=== PATIENT | male | born 1970 | race Caucasian/White ===

== ENCOUNTER 2023-03-06 14:41 | Inpatient (IN) | payer OTHER ==
[~2023-03-06] VITALS: Ht 162.6 cm; Wt 65.8 kg
[2023-03-06] MEDS ORDERED: ONDANSETRON 4 MG/2 ML VIAL ONE (15:15)
[2023-03-06] MEDS ORDERED: ONDANSETRON 4 MG/2 ML VIAL IV ONE (15:15)
--- NOTE | 2023-03-06 15:18 | NUR ---
PT IS IN ROOM #5B. DR HOPKINS EVALUATED THE PT.
[2023-03-06 15:19] LABS: HEMATOCRIT 29.2 % (36.7-47.1); MEAN CORPUSCULAR HEMOGLOBIN 25.9 uug (23.8-33.4); MEAN CORPUSCULAR VOLUME 79.9 fL (73.0-96.2); PLATELET COUNT (AUTO) 446 K/uL (152-348)
[2023-03-06] MEDS ORDERED: NITROGLYCERIN OINT 1 GM PACKET TP ONE ×2 (15:45→15:57)
[2023-03-06] MEDS ORDERED: PANTOPRAZOLE SODIUM IV 40 MG in IV DEXTROSE 5% 100 ML IV ONE (15:45)
[2023-03-06 15:50] LABS: CARBON DIOXIDE 25 mmol/L (21-32); CHLORIDE 99 mmol/L (98-107); CREATININE 0.8 mg/dL (0.6-1.3); GLUCOSE 96 mg/dL (74-106); POTASSIUM 3.1 mmol/L (3.5-5.1); UREA NITROGEN, BLOOD 12 mg/dL (7-18)
[2023-03-06 15:59] LABS: ALANINE AMINOTRANSFERASE 19 U/L (16-63); ALKALINE PHOSPHATASE 97 U/L (50-136); ASPARTATE AMINOTRANSFERASE 21 U/L (15-37); BILIRUBIN,DIRECT 0.1 mg/dL (0.0-0.2); BILIRUBIN,TOTAL 0.3 mg/dL (0.2-1.0); TOTAL PROTEIN, SERUM 8.7 g/dL (6.4-8.2)
[2023-03-06] MEDS ORDERED: PANTOPRAZOLE SODIUM 40 MG VIAL ONE (16:01)
[2023-03-06] MEDS: POTASSIUM CHLORIDE 50 ML IV SCH ×2 (16:45→17:45)
[2023-03-06] MEDS ORDERED: POTASSIUM CHLORIDE 50 ML ONE ×2 (16:51→17:57)
[2023-03-06] MEDS ORDERED: METOPROLOL SUCCINATE XL 25 MG TAB.SR.24H PO ONE ×2 (18:15→18:35)
[2023-03-06] MEDS ORDERED: ASPIRIN 81 MG TAB.CHEW PO ONE (18:15)
[2023-03-06] MEDS ORDERED: IV NORMAL SALINE 1000 ML BAG IV ONE (18:15)
[2023-03-06] MEDS ORDERED: ASPIRIN EC 81 MG TABLET.DR PO ONE (18:35)
--- NOTE | 2023-03-06 19:00 | NUR ---
Received report from GUY Wallis.
--- NOTE | 2023-03-06 20:10 | NUR ---
Report given to GUY Madrid.
[2023-03-06 20:50] VITALS: BP 130/75
--- NOTE | 2023-03-06 20:50 | NUR ---
Pt. admitted to TELE rm 316, under care of Dr. Vyas Belongs List completed GUY Madrid aware of patients arrival to unit.
--- NOTE | 2023-03-06 20:50 | NUR ---
RECEIVED PATIENT FROM ER : DX:CHEST PAIN HX: ETOH DEPENDENT MAMIE TOVAR GAVE REPORT USING SBAR. PATIENT AAOX4/MAEX4 . NO RESPIRATORY DISTRESS NOTED BREATHING EVEN AND UNLABORED V/S 98.9 F,RR18 HR92 SATURATION 96% ON ROOM AIR . ORIENTED PATIENT WITH ROOM ,EQUIPMENT ,CALL LIGHT AND ADVISED TO CALL FOR HELP .
--- NOTE | 2023-03-06 21:10 | NUR ---
PATIENT ASKED FOR SNACK/FOOD CHIEF TECHNOLOGY OFFICER PROVIDED APPLEJUICE ,SANDWICH AND JELLO .
[2023-03-06] MEDS ORDERED: THIAMINE HCL 200 MG/2 ML VIAL IV ONE (21:15)
[2023-03-06] MEDS ORDERED: REMEDY ESSENTIAL ZINC PASTE 113 GM TP PRN (21:15)
--- NOTE | 2023-03-06 21:36 | NUR ---
WOOD CHOPPER AT B/S FOR LAB DRAW .
[2023-03-06] MEDS: IV LACTATED RINGERS SOLUTION 1,000 ML IV PRN (21:41)
[2023-03-06] MEDS: LORAZEPAM 2 MG/1 ML VIAL IV PRN (21:47)
--- NOTE | 2023-03-06 21:47 | NUR ---
given prn Ativan patient anxious and getting agitated . see prn emar documentation .
--- NOTE | 2023-03-06 22:00 | NUR ---
inserted another iv to his right hand no .20 done aseptically attempted x1. left ac no.18 ok but patient keep bending the arm so the ivf pump keeps on beeping .
[2023-03-06] MEDS: ONDANSETRON 4 MG/2 ML VIAL IV PRN (22:06)
--- NOTE | 2023-03-06 22:07 | NUR ---
given Zofran c/o emesis x1 moderate about of liquid greenish vomitus .hob up and aspiration precaution observed.
[2023-03-06 22:09] LABS: THYROID STIMULATING HORMONE 2.396 mIU/mL (0.358-3.740)
[2023-03-06] MEDS ORDERED: THIAMINE HCL 200 MG/2 ML VIAL ONE (22:16)
--- NOTE | 2023-03-06 23:15 | NUR ---
patient in bed calm ,sleeping no s/s of pain .
[2023-03-07] VITALS: BP 118/78
[2023-03-07] MEDS: LORAZEPAM 2 MG/1 ML VIAL IV PRN ×3 (00:16→20:43)
--- NOTE | 2023-03-07 01:34 | NUR ---
PRN ATIVAN GIVEN SEE emar AND CIWA ASSESSMENT DONE .
[2023-03-07 04:00] VITALS: BP 115/76
[2023-03-07] MEDS: IV LACTATED RINGERS SOLUTION 1,000 ML IV PRN (06:20)
[2023-03-07 06:52] LABS: HEMATOCRIT 25.1 % (36.7-47.1); MEAN CORPUSCULAR HEMOGLOBIN 25.6 uug (23.8-33.4); MEAN CORPUSCULAR VOLUME 80.6 fL (73.0-96.2); PLATELET COUNT (AUTO) 331 K/uL (152-348)
[2023-03-07] MEDS ORDERED: PANTOPRAZOLE SODIUM 40 MG TABLET.DR PO SCH (07:00)
[2023-03-07 07:20] LABS: CREATININE 0.8 mg/dL (0.6-1.3); MAGNESIUM 1.7 mg/dL (1.8-2.4); PHOSPHOROUS 3.5 mg/dL (2.5-4.9); POTASSIUM 3.7 mmol/L (3.5-5.1)
[2023-03-07 07:29] LABS: *BLOOD, URINE NEGATIVE (NEGATIVE); *CLARITY,URINE CLEAR (CLEAR); *COLOR,URINE YELLOW (YELLOW); *KETONES,URINE 3+ (NEGATIVE); LEUKOCYTE ESTERASE ,URINE NEGATIVE (NEGATIVE); NITRITE, URINE NEGATIVE (NEGATIVE); UGLUCOSE NEGATIVE (NEGATIVE)
[2023-03-07 08:01] LABS: *BILIRUBIN,URIN 1+ (NEGATIVE)
--- NOTE | 2023-03-07 08:03 | NUR ---
critical lab value reported. urine ketone +3, urine +2. made aware.
[2023-03-07] MEDS ORDERED: ASPIRIN EC 81 MG TABLET.DR PO SCH (09:00)
[2023-03-07] MEDS ORDERED: THIAMINE HCL 100 MG TABLET PO SCH (09:00)
[2023-03-07] MEDS ORDERED: MAGNESIUM OXIDE 400 MG TABLET PO ONE (10:00)
[2023-03-07] MEDS: ONDANSETRON 4 MG/2 ML VIAL IV PRN (10:10)
[2023-03-07] MEDS ORDERED: MAGNESIUM SULFATE 1 GM/D5W 100 ML IVPB IV ONE (10:30)
[2023-03-07] MEDS: MAGNESIUM SULFATE/D5W 100 ML IV SCH ×2 (10:34→12:04)
[2023-03-07] MEDS: CHLORDIAZEPOXIDE HCL 25 MG CAPSULE PO SCH ×3 (11:30→17:08)
[2023-03-07 12:00] VITALS: BP 135/81
[2023-03-07 12:55] LABS: BACTERIA,URINE NONE SEEN /HPF (NONE SEEN); CALCIUM CARBONATE CRYSTALS,UR NONE SEEN /HPF (NONE SEEN); CALCIUM OXALATE CRYSTALS,UR NONE SEEN /HPF (NONE SEEN); CALCIUM PHOSPHATE CRYSTALS,UR NONE SEEN /HPF (NONE SEEN); CYSTINE CRYSTALS,URINE NONE SEEN /HPF (NONE SEEN); RBC,URINE 0-3 /HPF (0-3); SQUAMOUS EPITHELIAL CELL,UR FEW /HPF (NONE SEEN); TRICHOMONAS,URINE NONE SEEN /HPF (NONE SEEN); TRIPLE PHOSPHATE CRYSTAL,UR NONE SEEN /HPF (NONE SEEN); TYROSINE CRYSTAL,URINE NONE SEEN /HPF (NONE SEEN); URIC ACID CRYSTALS,URINE NONE SEEN /HPF (NONE SEEN); URINE AMORPHOUS PHOSPHATES NONE SEEN /HPF; URINE AMORPHOUS URATE NONE SEEN /HPF; YEAST,URINE NONE SEEN /HPF (NONE SEEN)
[2023-03-07 12:56] LABS: COARSE GRANULAR CASTS,URINE NONE SEEN /LPF; FATTY CASTS,URINE NONE SEEN /LPF (NONE SEEN); MUCUS,URINE FEW /LPF (0-FEW); RED BLOOD CELL CASTS,URINE NONE SEEN /LPF (NONE SEEN); SPERM,URINE NONE SEEN /HPF (NONE SEEN); WAXY CASTS,URINE NONE SEEN /LPF (NONE SEEN)
--- NOTE | 2023-03-07 13:00 | NUR ---
pt was started with Librium for alcohol withdrawal. pt alert and oriented. denies any pain. moderate tremor noted. deny hearing and seeing thing. nausea and vomiting subsided. pt ambulatory and brp.
[2023-03-07] MEDS: THIAMINE HCL INJ 100 MG in IV DEXTROSE 5% 50 ML IV SCH (13:13)
--- NOTE | 2023-03-07 15:54 | NUR ---
pt calm and relax. no episode of nausea and vomiting noted at this time. persistent hiccup noted.
[2023-03-07 16:00] VITALS: BP 139/80
[2023-03-07 16:19] LABS: HEMATOCRIT 27.3 % (36.7-47.1); MEAN CORPUSCULAR HEMOGLOBIN 25.8 uug (23.8-33.4); MEAN CORPUSCULAR VOLUME 80.3 fL (73.0-96.2); PLATELET COUNT (AUTO) 317 K/uL (152-348)
--- NOTE | 2023-03-07 18:03 | NUR ---
pt alert and oriented. denies any pain. episode of nausea and vomiting x3 in am noted PRN zofran was given. and PRN ativan was given for anxiety. pt ambulatory. vitals wnl. pt is tremulous. SIWA score of 9. pt states that "he's feeling much better" in the afternoon. no episode of nausea and vomiting in the afternoon. Librium 25mg TID was given for alcohol withdrawal. rhand 22g iv access patent and intact. hob elevated. aspiration precaution observed. bed locked all needs attended.
--- NOTE | 2023-03-07 19:53 | NUR ---
Received patient lying in bed. AAOx3. American speaking only. In no acute distress. Denies any pain or SOB. IV site on right FA intact and patent. IVF infusing. NSR on tele with HR of 90/min. Denies any N/V at this time. Safety measure initiated and call light within reached.
[2023-03-07 20:00] VITALS: BP 137/84
[2023-03-07] MEDS: PANTOPRAZOLE SODIUM 40 MG VIAL IV SCH (20:43)
[2023-03-07 22:05] LABS: *OCCULT BLOOD STOOL NEGATIVE (NEGATIVE)
[2023-03-08] VITALS: BP 133/90
[2023-03-08 04:00] VITALS: BP 130/89
[2023-03-08] MEDS: LORAZEPAM 2 MG/1 ML VIAL IV PRN (05:33)
--- NOTE | 2023-03-08 05:47 | NUR ---
No complain of N/V through out the shift. CIWA score 7. IVF infusing to PIV on right FA. NSR on tele with HR of 71/min. Needs attended to and met. Safety measure maintained and call light within reached.
[2023-03-08 07:05] LABS: CREATININE 0.7 mg/dL (0.6-1.3); MAGNESIUM 1.9 mg/dL (1.8-2.4); POTASSIUM 3.3 mmol/L (3.5-5.1)
--- NOTE | 2023-03-08 07:30 | NUR ---
MORNING REPORT: 1) MENTAL STATE: AO x 4 -patient able to verbally able to express needs. 2) BREATHING: Patient on RA - no sign of distress observed, o2 sats within normal limits. 3) CIRCULATION: No signs of cynosis, has strong pedal pulse present in both feet. 4) EATING & DRINKING: Self - feeder, eating and drinking well. Experiencing hip-cups and no new orders observed. 5) ELIMINATION: (i) Alternating between urinal and bathroom - passing good amounts of urine. (ii) large bowel movement during the day - well foamed 6) SKIN: Intact - self turning. 7) VITALS: Within normal limits 8) LABS: Pot low 3.3 and replacement administered as prescribed 40MeQ. 8) PLAN: (i) Maintain safety (ii) provide all care
[2023-03-08] MEDS ORDERED: POTASSIUM CHLORIDE 20 MEQ TAB.PRT.SR PO ONE (07:45)
[2023-03-08] MEDS: CHLORDIAZEPOXIDE HCL 25 MG CAPSULE PO SCH ×3 (09:34→17:16)
[2023-03-08] MEDS: PANTOPRAZOLE SODIUM 40 MG VIAL IV SCH ×2 (09:34→20:11)
[2023-03-08] MEDS: IV LACTATED RINGERS SOLUTION 1,000 ML IV PRN ×2 (09:53→20:11)
--- NOTE | 2023-03-08 10:25 | NUR ---
Social work consult was requested for a patient for homeless and substance abuse resources. Patient is 53-year-old male. Patient is Malagasy speaking and SW had, Deirdre, markus. Patient is alert and oriented X4. Patient presents with anxious mood and congruent affect. Patient states he does not have a primary contact. Patient states he is homeless and SW provided the patient resources and gave him the information for [facility] [address] [place] [address] ([phone]) and [facility] [address] [facility] [address] ([phone]). SW gave resources for [facility] [address] [facility] [address]. Resources were placed in the chart. Homeless waiver was signed and a copy was placed in the chart. Patient states that he is unemployed. Patient states that he has a history of alcohol abuse and his alcohol level was 302. CARLOS provided the patient resources and referrals for substance use from [facility] [address] [facility] [address] ([phone]), [facility] [address] [facility] [address] ([phone]), and [facility] [address] [facility] [address] ([phone]). Patient appeared appreciative of resources. Resources were placed in the chart. Patient denies a history of psychiatric diagnosis. Patient denies suicidal or homicidal ideation. Patient states he will follow-up with making his own arrangements for a living arrangement using the resources provided and requests a TAP card at discharge.
[2023-03-08 11:35] LABS: HEMATOCRIT 26.7 % (36.7-47.1); MEAN CORPUSCULAR HEMOGLOBIN 25.7 uug (23.8-33.4); MEAN CORPUSCULAR VOLUME 80.9 fL (73.0-96.2); PLATELET COUNT (AUTO) 292 K/uL (152-348)
[2023-03-08 11:42] VITALS: BP 121/47
[2023-03-08] MEDS: THIAMINE HCL INJ 100 MG in IV DEXTROSE 5% 50 ML IV SCH (12:25)
--- NOTE | 2023-03-08 12:30 | NUR ---
1) C/o of slight nausea - however noticed patient spitting phrame - no vomiting. 2) Refused anti-metic
[2023-03-08 16:00] VITALS: BP 127/83
--- NOTE | 2023-03-08 17:25 | NUR ---
LUNCH TIME 1) Self feeder 2) Ate 75% of lunch c/o of slight nausea
[2023-03-08] MEDS: ONDANSETRON 4 MG/2 ML VIAL IV PRN (17:59)
--- NOTE | 2023-03-08 18:15 | NUR ---
1) Patient vomited - large amount of digested food. 2) Zofran iv administered as prescribed.
--- NOTE | 2023-03-08 18:51 | NUR ---
HANDOVER TO NIGHT NURSES: 1) No change in condition 2) Will endorse care to night staff who will continue to assess, plan, implement and treat accordingly
--- NOTE | 2023-03-08 19:30 | NUR ---
Received patient lying in bed. AAOx2-3. No complain of N/V at this time. IVF infusing to PIV on right FA. Needs assessed and attended to. Safety measure initiated and call light within reached.
[2023-03-08 20:05] VITALS: BP 139/78
[2023-03-09 06:00] VITALS: BP 144/89
[2023-03-09] MEDS: ACETAMINOPHEN 325 MG TABLET PO PRN (06:14)
--- NOTE | 2023-03-09 06:24 | NUR ---
Low grade fever this AM. Tylenol 650mg PO given. Slept most of the night. No complain of pain or SOB. Calm and cooperative. No N/V complained. Safety measure maintained and call light within reached.
[2023-03-09] MEDS: IV LACTATED RINGERS SOLUTION 1,000 ML IV PRN ×2 (06:57→19:59)
--- NOTE | 2023-03-09 07:30 | NUR ---
received in bed awake no c/o nausea vomiting noted call light with in cely marley report is 2
[2023-03-09 07:44] LABS: HEMATOCRIT 26.7 % (36.7-47.1); MEAN CORPUSCULAR HEMOGLOBIN 25.9 uug (23.8-33.4); MEAN CORPUSCULAR VOLUME 81.5 fL (73.0-96.2); PLATELET COUNT (AUTO) 283 K/uL (152-348)
[2023-03-09 08:11] LABS: BILIRUBIN,TOTAL 0.2 mg/dL (0.2-1.0); CREATININE 0.7 mg/dL (0.6-1.3); POTASSIUM 3.6 mmol/L (3.5-5.1); TOTAL PROTEIN, SERUM 7.2 g/dL (6.4-8.2)
[2023-03-09] MEDS: CHLORDIAZEPOXIDE HCL 25 MG CAPSULE PO SCH ×3 (08:43→16:56)
[2023-03-09] MEDS: PANTOPRAZOLE SODIUM 40 MG VIAL IV SCH ×2 (08:43→20:35)
[2023-03-09] MEDS: THIAMINE HCL INJ 100 MG in IV DEXTROSE 5% 50 ML IV SCH (11:13)
[2023-03-09 11:31] VITALS: BP 137/88
[2023-03-09] MEDS: METOCLOPRAMIDE HCL 10 MG/2 ML VIAL IV SCH ×2 (14:24→21:09)
[2023-03-09] MEDS: ONDANSETRON 4 MG/2 ML VIAL IV PRN (14:56)
--- NOTE | 2023-03-09 14:56 | NUR ---
Patient vomited - large amount of digested food. Zofran iv administered by rn as prescribed.
[2023-03-09 16:13] VITALS: BP 134/89
[2023-03-09 20:00] VITALS: BP 127/81
--- NOTE | 2023-03-09 23:17 | NUR ---
pt calm and relax. no episode of nausea and vomiting noted at this time. persistent hiccup noted.
[2023-03-09] MEDS: LORAZEPAM 2 MG/1 ML VIAL IV PRN (23:28)
[2023-03-10 04:00] VITALS: BP 96/74
[2023-03-10] MEDS: METOCLOPRAMIDE HCL 10 MG/2 ML VIAL IV SCH ×3 (05:06→21:19)
--- NOTE | 2023-03-10 05:11 | NUR ---
Patient resting in bed comfortably. no s/s of sob or pain noted.
[2023-03-10] MEDS: IV LACTATED RINGERS SOLUTION 1,000 ML IV PRN (06:19)
--- NOTE | 2023-03-10 07:30 | NUR ---
MORNING REPORT: 1) MENTAL STATE: AO x 4 -patient able to verbally able to express needs. 2) BREATHING: Patient on RA - no sign of distress observed, o2 sats within normal limits. 3) CIRCULATION: No signs of cynosis, has strong pedal pulse present in both feet. 4) EATING & DRINKING: Self - feeder, eating and drinking well. Experiencing hip-cups and no new orders observed. 5) ELIMINATION: (i) Alternating between urinal and bathroom - passing good amounts of urine. (ii) large bowel movement during the day - well foamed 6) SKIN: Intact - self turning. 7) VITALS: Within normal limits 8) LABS: (i) Hgb low 8.5 (ii) Hct 26.7 (iii) Albimin 3.0 (iv) Creatinine 7.1 (v) BUN 5 8) PLAN: (i) Maintain safety - monitor vomiting & signs of aspiration (ii) provide all care
--- NOTE | 2023-03-10 08:35 | NUR ---
NAUSEA & AGITATION: 1) Continues to have hiccups and agitated 2) Zofran & Ativan administered as prescribed. 3) Await effect
[2023-03-10] MEDS: PANTOPRAZOLE SODIUM 40 MG VIAL IV SCH ×2 (08:50→20:05)
[2023-03-10] MEDS: CHLORDIAZEPOXIDE HCL 25 MG CAPSULE PO SCH ×3 (08:50→17:40)
[2023-03-10] MEDS: ONDANSETRON 4 MG/2 ML VIAL IV PRN (08:56)
[2023-03-10] MEDS: LORAZEPAM 2 MG/1 ML VIAL IV PRN (08:56)
--- NOTE | 2023-03-10 09:15 | NUR ---
VP COMPLIANCE ROUND: 1) Stop iv fluid - patient eating and drinking well. 2) VP COMPLIANCE aware of line out. 3) Can order MD if needed later as patient is a hard stick. 4) Patient to mobilize more - no urinal , so as to encourage patient to get out of bed more often.
[2023-03-10] MEDS: THIAMINE HCL 100 MG TABLET PO SCH (10:13)
[2023-03-10] MEDS: BACLOFEN 10 MG TABLET PO SCH ×2 (10:13→20:04)
--- NOTE | 2023-03-10 10:14 | NUR ---
HYDRAULIC BULL RIVETER OPERATOR ROUND: 1) Commenced on Baclofen PO 2) PO Vit B1 administered as prescribed.
--- NOTE | 2023-03-10 11:05 | NUR ---
ROUNDIN) Checked on patient - awake and returning from bathroom. 2) No change - still has hiccups. 3) Encouraged to drink lots.
[2023-03-10 11:59] VITALS: BP 116/73
[2023-03-10] MEDS ORDERED: LACTULOSE 20 G/30 ML LIQUID UDC PO ONE (12:00)
[2023-03-10] MEDS: LIDOCAINE 5% PATCH TD SCH (13:51)
--- NOTE | 2023-03-10 13:56 | NUR ---
PM MEDICATION: 1) Administered as prescribed: (i) Lactulose (ii) Reglan - Metoclopramide iv 2) Iv site - remains patent and no change.
--- NOTE | 2023-03-10 13:59 | NUR ---
PM MEDICATION: 1) Lidocaine patch applied to L side of chest 2) Complaining of pain from the hiccups.
--- NOTE | 2023-03-10 15:53 | NUR ---
ROUNDING: Patient asleep peacefully, no non-verbal signs of pain or distress.
[2023-03-10 16:17] VITALS: BP 131/81
[2023-03-10] MEDS: ACETAMINOPHEN 325 MG TABLET PO PRN (17:40)
--- NOTE | 2023-03-10 17:42 | NUR ---
EVENING MEDICATION: 1) Librium for alcohol withdrawal & Tylenol administered for pain 2) Patient still has continuous hiccups 3) Will endorse care accordingly to night staff who will continue care as required. 4) No sign of distress, SOB, or concerned expressed.
--- NOTE | 2023-03-10 19:14 | NUR ---
NIGHT ENDORSEMENT: 1) No change in condition, no sign of distress, SOB, or pain observed at the time of this report. 2) Care endorsed to night staff accordingly.
[2023-03-10 20:10] VITALS: BP 117/73
--- NOTE | 2023-03-10 20:25 | NUR ---
Received patient lying in bed. AAOx3. Yemeni speaking only. In no acute distress. Denies any pain or SOB.. Denies any N/V at this time. Safety measure initiated and call light within reached.
--- NOTE | 2023-03-11 00:31 | NUR ---
Patient resting in bed comfortably. no s/s of sob or pain noted.
[2023-03-11 04:22] VITALS: BP 102/72
[2023-03-11] MEDS: METOCLOPRAMIDE HCL 10 MG/2 ML VIAL IV SCH ×2 (04:59→13:10)
--- NOTE | 2023-03-11 06:14 | NUR ---
end shift report Pt. has been stable during the shift. No c/o pain. call light within reach. Able to make the need known. No change in condition noted. and no adverse reaction noted. Kept the pt. clean and dry. Will keep monitoring the patient.
[2023-03-11 07:23] LABS: HEMATOCRIT 28.5 % (36.7-47.1); MEAN CORPUSCULAR HEMOGLOBIN 25.8 uug (23.8-33.4); MEAN CORPUSCULAR VOLUME 81.9 fL (73.0-96.2); PLATELET COUNT (AUTO) 264 K/uL (152-348)
[2023-03-11] MEDS: CHLORDIAZEPOXIDE HCL 25 MG CAPSULE PO SCH ×2 (08:17→13:10)
[2023-03-11] MEDS: PANTOPRAZOLE SODIUM 40 MG VIAL IV SCH (08:17)
[2023-03-11] MEDS: THIAMINE HCL 100 MG TABLET PO SCH (08:17)
[2023-03-11] MEDS: BACLOFEN 10 MG TABLET PO SCH (08:17)
[2023-03-11] MEDS: LIDOCAINE 5% PATCH TD SCH (08:17)
[2023-03-11 12:00] VITALS: BP 133/82
[2023-03-11] MEDS ORDERED: PANT20TA2 PO (12:42)
[2023-03-11] MEDS ORDERED: BACL10TA PO (12:42)
[2023-03-11] MEDS ORDERED: LIDO30AD10 TD (12:42)
[2023-03-11] MEDS ORDERED: METO-295 PO (12:42)
[2023-03-11] MEDS ORDERED: CHLO25CA22 PO (12:42)
[2023-03-11] MEDS ORDERED: THIA100T13 PO (12:42)
--- NOTE | 2023-03-11 14:45 | NUR ---
Pt discharge instructions given to patient. Pt denies any c/o pain. IV midline taken out on left upper arm. Provided pt with TAP card and cane per [facility] Hospitalist instructions. Asked pt if he needed new clothing - per patient his current clothes sill suffice. pt destination is [facility]. Provided resources for patient. Verified preferred pharmacy on [facility] [address] and [address]. Pt is in no acute distress upon discharge.
== END 2023-03-11 14:45 | disposition home or self-care (01) | DRG 243 ==
LOC: ER 14:41 → TELE3 20:23 → MEDSURG3 03-08 11:15
PROVIDERS: ADMIT Nurse Practitioner Acute Care; ATTEND Nurse Practitioner Acute Care
PROC: 05HA33Z Insertion of Infusion Device into Left Brachial Vein, Percutaneous Approach (ICD-10-PCS; principal; 2023-03-10)
DX: K21.9 Gastro-esophageal reflux disease without esophagitis (principal); F10.221 Alcohol dependence with intoxication delirium; D50.0 Iron deficiency anemia secondary to blood loss (chronic); K92.2 Gastrointestinal hemorrhage, unspecified; E87.6 Hypokalemia; Z59.02 Unsheltered homelessness; Y90.8 Blood alcohol level of 240 mg/100 ml or more; R06.6 Hiccough; E78.5 Hyperlipidemia, unspecified; I10 Essential (primary) hypertension; R00.0 Tachycardia, unspecified; F10.239 Alcohol dependence with withdrawal, unspecified; R11.2 Nausea with vomiting, unspecified
CPT/HCPCS: 36415; 71045; 83550; 83690; 83735; 84100; 84443; 84484; 85025; 93005; 93307; A4663; C9113; G0378; G0480; J2060; J2405; J2765; J3411; J3475; J3480; J7040; J7120